=== PATIENT | male | born 1955 | race Caucasian/White ===

== ENCOUNTER 2017-06-21 09:36 | Emergency (ER) | payer OTHER ==
[2017-06-21 09:44] VITALS: TEMP 97.5
[2017-06-21] MEDS ORDERED: TDAP ADULT 0.5 ML INJ (BOOSTRIX) IM ONE (10:01)
--- NOTE | 2017-06-21 10:30 | EDPHY ---
General Narrative: CHIEF COMPLAINT: Heel pain, possible infection HISTORY OF PRESENT ILLNESS: Patient complains of left heel pain after stepping on a carpet tack strip 1 week ago. This was while wearing socks. Minimally painful time. Now consistently [id number] in the left heel. No pain in the midfoot. No pain in the cantu or calf. Symptoms have not improved however. He has felt warmth in the left leg. No swelling. No redness. No pain in the calf. No recent travel or surgery. No recent trauma or injury. No history of venous thrombolic event. No other associated complaints or modifying factors. REVIEW OF SYSTEMS: Ten systems reviewed and are negative unless otherwise noted in the HPI PCP: Dr. Donis SPECIALISTS: None PAST MEDICAL HISTORY: None PAST SURGICAL HISTORY: None SOCIAL HISTORY: Nonsmoker. No illicit substance use. FAMILY HISTORY: Noncontributory EXAMINATION General Appearance: Alert, no distress Head: normocephalic, atraumatic Eyes: Pupils equal and round, no conjunctival pallor or injection Cardiovascular: Regular rate. DP and PT pulses are symmetric at 2+ Neurological: A&O, nonfocal, strength is symmetric in both limbs. No foot drop. Normal proprioception of the left great toe Skin: Warm and dry, no rash. No fluctuance. No induration. No petechiae or purpura. No cellulitis. Extremities: Mild tenderness of the left calcaneus. No tenderness of the left midfoot. No tenderness of the malleoli. No tenderness of the cantu or proximal fibula on the left leg. There is no calf tenderness or swelling. No palpable cord. No pain with passive dorsiflexion of the left foot. Psychiatric: Mood and affect normal DIFFERENTIAL DIAGNOSES: Including but not limited to contusion, hematoma, fracture, cellulitis, sprain, strain, DVT MDM: 10:30 a.m. Left heel pain that radiates up into the ankle. This is status post stepping on a carpet tacks trip 1 week ago. There is no redness at any portion of the left lower extremity. There is no swelling of the calf. No evidence of DVT. No evidence of cellulitis. X-ray has been ordered of the left calcaneus. 11:33 a.m. X-ray is negative for any fracture or foreign body. I do not appreciate any evidence of DVT or cellulitis. No abscess. No warmth to the extremity. We discussed discharge home with symptomatic care and follow up with primary care physician and orthopedist. The patient is uncomfortable as he feels that there may be infection underneath. I reassured him that this no evidence of days, but I will prescribe him ciprofloxacin empirically. We discussed the associated risks with tendinopathy. He is willing to cm. He will follow up with primary care physician. ED precautions for any worsening pain. I would like him to remain nonweightbearing with crutches that he are he has due to the heel tenderness. He has established primary care physician orthopedist he will follow up with. Return for any warmth of the calf, swelling of the calf, pain with passive movement of the ankle. - Diagnostics Imaging Results: Imaging Impressions Calcaneus X-Ray 06/21/17 10:30 Impression: 1. No fracture of the left calcaneus. 2. No radiopaque foreign bodies. - History Smoking Status: Never smoked - Objective Vital Signs: Initial Vital Signs Temperature (C) 97.5 F 06/21/17 09:42 Heart Rate 79 06/21/17 09:42 Respiratory Rate 18 06/21/17 09:42 Blood Pressure 157/93 H 06/21/17 09:42 O2 Sat (%) 98 06/21/17 09:42 O2 Delivery Mode Room Air Allergies/Adverse Reactions: Sulfa (Sulfonamide Antibiotics) Allergy (Mild, Verified 06/21/17 09:42) Hives Home Medications: Medication Instructions Recorded Ciprofloxacin [Cipro] 500 mg PO BID #14 tab 06/21/17 Medications Given: Discontinued Medications Diphtheria/Tetanus/Acell Pertussis (Boostrix) 0.5 ml IM .ONCE ONE Stop: 06/21/17 10:02 Last Admin: 06/21/17 10:05 Dose: 0.5 ml Departure - Departure Disposition: Home, Routine, Self-Care Clinical Impression: Puncture Heel pain Qualifiers: Laterality: left Qualified Code(s): M79.672 - Pain in left foot Condition: Good Instructions: Puncture Wound (ED) Additional Instructions: 1. Nonweightbearing if the heel continues to be painful 2. Use the crutches you have at home at all times until seen by orthopedist 3. Follow up with primary care physician on Friday for recheck 4. Follow up with orthopedist in 3 days 5. Return to ER for any worsening pain, any redness, any warmth, any calf pain, any swelling of the leg, any fever 6. Achilles tendon precautions as discussed while taking the antibiotics Referrals: Marcos Donis MD [Primary Care Provider] - As per Instructions Prescriptions: Ciprofloxacin [Cipro] 500 mg PO BID #14 tab
[2017-06-21 11:51] VITALS: BP 140/83; PULSE 68; RESP 16; O2SAT 95
== END 2017-06-21 11:49 | disposition home or self-care (01) ==
DX: S91.332A Puncture wound without foreign body, left foot, initial encounter (principal); W45.8XXA Other foreign body or object entering through skin, initial encounter; Y99.8 Other external cause status; Y93.89 Activity, other specified; Z23 Encounter for immunization

== ENCOUNTER → 2018-02-25 | Outpatient (CLI) | payer BC | LOC: BMCIMAGING 10:39 | PROVIDERS: ATTEND Internal Medicine Rheumatology | DX: M79.89 Other specified soft tissue disorders (principal) ==